=== PATIENT | male | born 1985 | race Caucasian/White ===

== ENCOUNTER 2018-09-16 18:56 | Emergency (ER) | payer MEDICAID, OTHER ==
[2018-09-16] MEDS: KETOROLAC 60 MG INJ IM (21:10)
[2018-09-16 21:16] LABS: URINE BLOOD (Dip) POC Negative (NEGATIVE); URINE GLUCOSE (Dip) POC Negative (NEGATIVE); URINE KETONES (Dip) POC Negative (NEGATIVE); URINE LEUKOCYTE EST (Dip) POC Negative (NEGATIVE); URINE NITRITE (Dip) POC Negative (NEGATIVE); URINE TOTAL PROTEIN POC Negative (NEGATIVE)
== END 2018-09-16 21:57 | disposition home or self-care (01) ==
LOC: FTE 18:56
DX: M54.9 Dorsalgia, unspecified (principal)
CPT/HCPCS: 81003; 96372; 99284-25